=== PATIENT | male | born 1985 | race Two or more races ===

== ENCOUNTER 2021-01-10 18:26 | Emergency (ER) | payer MEDICAID ==
[~2021-01-10] VITALS: Ht 175.3 cm; Wt 99.8 kg
[2021-01-10] MEDS ORDERED: ETOMIDATE (2MG/ML) 20ML VIAL IV ONE ×2 (19:00→21:06)
[2021-01-10 21:21] VITALS: BP 134/82
== END 2021-01-10 21:58 | disposition home or self-care (01) ==
LOC: ER 18:26
DX: S43.005A Unspecified dislocation of left shoulder joint, initial encounter (principal); X58.XXXA Exposure to other specified factors, initial encounter; Y93.89 Activity, other specified; Y92.89 Other specified places as the place of occurrence of the external cause; Y99.8 Other external cause status
CPT/HCPCS: 23650; 73020; 73030